=== PATIENT | male | born 1995 | race Caucasian/White ===

== ENCOUNTER 2017-01-15 07:51 | Emergency (ER) | payer SELFPAY ==
[~2017-01-15] VITALS: Ht 170.2 cm; Wt 52.7 kg
[2017-01-15 07:52] VITALS: BP 149/98
[2017-01-15] MEDS ORDERED: AZITHROMYCIN 500 MG TABLET PO ONE (09:00)
[2017-01-15] MEDS ORDERED: CEFTRIAXONE 250 MG IM ONE (09:00)
[2017-01-15] MEDS ORDERED: CEFTRIAXONE 250 MG ONE (09:02)
[2017-01-15] MEDS ORDERED: AZITHROMYCIN 500 MG TABLET ONE (09:02)
== END 2017-01-15 10:40 | disposition home or self-care (01) ==
LOC: ED 08:19
DX: N34.1 Nonspecific urethritis (principal)
CPT/HCPCS: 81001; 87086; 87491; 87591; 96372; 99284; J0696

== ENCOUNTER 2018-09-09 16:34 | Emergency (ER) | payer MEDICAID ==
[~2018-09-09] VITALS: Ht 167.6 cm; Wt 56.2 kg
[2018-09-09] MEDS ORDERED: ALBUTEROL/IPRATROPIUM 2.5MG/0.5MG, 3 ML ONE (16:54)
[2018-09-09] MEDS ORDERED: ACETAMINOPHEN 500 MG TABLET PO ONE (17:00)
[2018-09-09] MEDS ORDERED: ALBUTEROL/IPRATROPIUM 2.5MG/0.5MG, 3 ML NPPB SCH (17:00)
[2018-09-09] MEDS ORDERED: IBUPROFEN 600 MG TABLET ONE (17:19)
[2018-09-09 17:20] LABS: BASOPHILS # (AUTO) 0.01 x10^3/uL (0-0.1); BASOPHILS % (AUTO) 0 % (0-1); EOSINOPHILS # (AUTO) 0.01 x10^3/uL (0-0.4); EOSINOPHILS % (AUTO) 0 % (1-7); LYMPHOCYTES # (AUTO) 0.57 x10^3/uL (1-3.4); LYMPHOCYTES % (AUTO) 6 % (22-44); MD NO; MEAN CORPUSCULAR HEMOGLOBIN 30.5 pg (27.5-34.5); MEAN CORPUSCULAR VOLUME 87.1 fL (81-97); MEAN PLATELET VOLUME 7.7 fL (7.4-10.4); MONOCYTES # (AUTO) 0.58 x10^3/uL (0.2-0.8); MONOCYTES % (AUTO) 6 % (2-9); NEUTROPHILS # (AUTO) 8.73 x10^3/uL (1.8-6.8); NEUTROPHILS % (AUTO) 88 % (42-75); PLATELET COUNT 177 x10^3/uL (130-400); RED BLOOD COUNT 6.02 x10^6/uL (4.38-5.82); RED CELL DISTRIBUTION WIDTH 12.4 % (9.4-14.8)
[2018-09-09 17:22] LABS: RAPID INFLUENZA A Negative (Negative); RAPID INFLUENZA B Negative (Negative)
[2018-09-09 17:32] LABS: ANION GAP 12 mmol/L (5-15); CALCIUM 8.6 mg/dL (8.5-10.1); CHLORIDE 106 mmol/L (98-107); CREATININE 1.26 mg/dL (0.7-1.3)
[2018-09-09] MEDS ORDERED: POTASSIUM CHLORIDE 20 MEQ PACKET ONE (17:46)
[2018-09-09] MEDS ORDERED: LORazepam 2 MG/ML, 1ML ONE (17:55)
[2018-09-09] MEDS ORDERED: ACETAMINOPHEN 325 MG TABLET ONE (17:55)
[2018-09-09] MEDS ORDERED: POTASSIUM CHLORIDE 20 MEQ TAB.ER.PRT PO ONE (18:00)
[2018-09-09] MEDS ORDERED: LORazepam 2 MG/ML, 1ML IVP ONE (18:00)
[2018-09-09] MEDS ORDERED: ACETAMINOPHEN 325 MG TABLET PO ONE (18:00)
[2018-09-09] MEDS ORDERED: SODIUM CHLORIDE 0.9% 1,000ML IVBOLUS ONE (18:00)
[2018-09-09] MEDS ORDERED: SODIUM CHLORIDE FLUSH 10ML SYR IVF ONE (18:00)
[2018-09-09] MEDS ORDERED: OMNIPAQUE 350 MG/ML, 100ML BOTTLE ONE (18:37)
[2018-09-09 19:34] VITALS: BP 98/50
== END 2018-09-09 19:35 | disposition home or self-care (01) ==
LOC: ED 18:37
DX: J18.0 Bronchopneumonia, unspecified organism (principal); R50.9 Fever, unspecified; R11.10 Vomiting, unspecified
CPT/HCPCS: 36415; 71046; 71275; 80048; 82040; 83605; 85025; 87040; 87400; 93005; 94640; 96361; 96374; 99284; J2060; J7030; J7620; Q9967

== ENCOUNTER 2020-05-07 10:39 | Emergency (ER) | payer SELFPAY ==
[~2020-05-07] VITALS: Ht 170.2 cm; Wt 60.5 kg
[2020-05-07 10:40] VITALS: BP 135/103
--- NOTE | 2020-05-07 10:56 | NUR ---
PT C/O HITTING BACK OF HEAD AFTER FALLING BACKWARDS AFTER HAVING A COUPLE DRINKS, LAST NIGHT. BLEEDING CONTROLLED RIGHT AWAY. DENIES LOC. "WANTS CHECKED OUT AND STITCHES IF NEEDED. PT CONNECTED TO MONITORING. CALL LIGHT IN REACH.
[2020-05-07] MEDS ORDERED: ACETAMINOPHEN 500 MG TABLET ONE (11:25)
[2020-05-07] MEDS ORDERED: ACETAMINOPHEN 500 MG TABLET PO ONE (11:30)
[2020-05-07] MEDS ORDERED: LIDOCAINE 1%-EPI 1:100K, 20ML ONE (13:15)
--- NOTE | 2020-05-07 13:17 | NUR ---
MED PULLED FOR PROVIDER ADMIN
--- NOTE | 2020-05-07 13:23 | NUR ---
TECH AT BEDSIDE TO CLEAN WOUND AND SET UP FOR PIERO.
[2020-05-07] MEDS ORDERED: LIDOCAINE 1%-EPI 1:100K, 20ML INFIL ONE (13:30)
[2020-05-07] MEDS ORDERED: DIPH,PERTUSS(ACELL),TET VAC/PF 0.5 ML IM-VACC ONE ×2 (14:10→14:30)
== END 2020-05-07 14:51 | disposition home or self-care (01) ==
LOC: ED 11:24
DX: S01.01XA Laceration without foreign body of scalp, initial encounter (principal); F17.210 Nicotine dependence, cigarettes, uncomplicated; W01.0XXA Fall on same level from slipping, tripping and stumbling without subsequent striking against object, initial encounter; Y93.89 Activity, other specified; Y92.098 Other place in other non-institutional residence as the place of occurrence of the external cause; Y99.8 Other external cause status
CPT/HCPCS: 12032; 70450; 90471; 90715; 99284

== ENCOUNTER 2020-05-25 19:46 | Emergency (ER) | payer OTHER ==
[~2020-05-25] VITALS: Ht 170.2 cm; Wt 61.0 kg
[2020-05-25 20:29] VITALS: BP 135/89
--- NOTE | 2020-05-25 21:59 | NUR ---
PT TO ROOM FROM LOBBY
--- NOTE | 2020-05-25 22:27 | NUR ---
Pt here for staple removal.
--- NOTE | 2020-05-25 22:38 | NUR ---
staple removal tools at bedside. Awaiting provider.
--- NOTE | 2020-05-25 23:09 | NUR ---
Patient/Caregiver given discharge instructions and they have confirmed that they understand the instructions. Patient ambulatory with steady gait.
== END 2020-05-25 23:11 | disposition home or self-care (01) ==
LOC: ED 22:27
DX: S01.01XD Laceration without foreign body of scalp, subsequent encounter (principal); F17.200 Nicotine dependence, unspecified, uncomplicated; X58.XXXD Exposure to other specified factors, subsequent encounter
CPT/HCPCS: 99281

== ENCOUNTER 2021-04-08 11:57 | Emergency (ER) | payer SELFPAY ==
[~2021-04-08] VITALS: Ht 170.2 cm; Wt 61.3 kg
[2021-04-08 12:01] VITALS: BP 131/80
[2021-04-08 12:38] LABS: BASOPHILS % (AUTO) 1 % (0-1); EOSINOPHILS % (AUTO) 0 % (1-7); LYMPHOCYTES % (AUTO) 18 % (22-44); MEAN CORPUSCULAR HEMOGLOBIN 30.3 pg (27.5-34.5); MEAN CORPUSCULAR HGB CONC 35.7 g/dL (33.2-36.2); MEAN PLATELET VOLUME 8.1 fL (7.4-10.4); MONOCYTES % (AUTO) 5 % (2-9); NEUTROPHILS % (AUTO) 77 % (42-75); PLATELET COUNT 271 x10^3/uL (130-400); RED BLOOD COUNT 6.05 x10^6/uL (4.38-5.82)
[2021-04-08 12:48] LABS: ALBUMIN 5.1 g/dL (3.4-5.0); ANION GAP 14 mmol/L (5-15); CALCIUM 10.5 mg/dL (8.5-10.1); CHLORIDE 103 mmol/L (98-107)
[2021-04-08 12:53] LABS: ALANINE AMINOTRANSFERASE 46 U/L (12-78); ALKALINE PHOSPHATASE 93 U/L (45-117); BILIRUBIN,TOTAL 1.8 mg/dL (0.2-1.0); CREATININE 1.16 mg/dL (0.7-1.3); TOTAL PROTEIN 8.5 g/dL (6.4-8.2)
--- NOTE | 2021-04-08 13:35 | NUR ---
warehouser: attempted to call pt from lobby to room, no answer in lobby
--- NOTE | 2021-04-08 15:16 | NUR ---
inspector welded parts: attempted to move patient from lobby to room, no answer in lobby
--- NOTE | 2021-04-08 15:52 | NUR ---
rag sorter: attempted to move patient from lobby to room, no answer in lobby
== END 2021-04-08 15:54 | disposition left against medical advice (07) ==
LOC: ED 15:00
DX: R25.2 Cramp and spasm (principal); F10.129 Alcohol abuse with intoxication, unspecified; Y90.0 Blood alcohol level of less than 20 mg/100 ml
CPT/HCPCS: 36415; 80053; 80320; 85025; 99283; G0480